=== PATIENT | male | born 1985 | race Two or more races ===

== ENCOUNTER 2021-03-02 13:36 | Inpatient (IN) | payer OTHER ==
[2021-03-02 15:51] VITALS: BMI 39.1
[2021-03-02] MEDS ORDERED: IBUPROFEN 400 MG TABLET (FP) PO PRN (17:46)
[2021-03-02] MEDS ORDERED: MAGNESIUM CITRATE 300 ML BOTTLE PO PRN (17:46)
[2021-03-02] MEDS ORDERED: P-EPHED 60MG/TRIPROLIDI 2.5MG TABLET PO PRN (17:46)
[2021-03-02] MEDS ORDERED: LOPERAMIDE HCL 2 MG CAPSULE PO PRN (17:46)
[2021-03-02] MEDS ORDERED: MAGNESIUM HYDROX 2400MG/30ML ORAL SUSPENSION 30 ML CUP PO PRN (17:46)
[2021-03-02] MEDS ORDERED: ACETAMINOPHEN 325 MG TABLET (FP) PO PRN (17:46)
[2021-03-02] MEDS ORDERED: MAG HYDROX/AL HYDROX/SIMETH 30 ML UNIT-DOSE CUP PO PRN (17:46)
[2021-03-02] MEDS ORDERED: NICOTINE POLACRILEX 2 MG GUM BC PRN (17:46)
[2021-03-02] MEDS ORDERED: guaiFENesin 200 MG/10 ML 10 ML UNIT-DOSE CUPS PO PRN (17:46)
[2021-03-02] MEDS ORDERED: TUBERCULIN PPD 5 TU/0.1ML VIAL ID ONE (23:03)
[2021-03-02] MEDS: hydrOXYzine PAMOATE 25 MG CAPSULE (FP) PO SCH ×2 (23:07→23:08)
[2021-03-02] MEDS: NICOTINE 7 MG/24 HOURS TOPICAL PATCH TD SCH (23:07)
[2021-03-02] MEDS: MELATONIN 5 MG TABLETS PO SCH (23:08)
[2021-03-02] MEDS: THIAMINE HCL 100 MG TABLET (FP) PO SCH (23:08)
[2021-03-03] MEDS: hydrOXYzine PAMOATE 25 MG CAPSULE (FP) PO SCH ×5 (06:34→21:48)
[2021-03-03] MEDS ORDERED: METOPROLOL TARTRATE 25 MG TABLET (FP) PO ONE (07:45)
[2021-03-03] MEDS ORDERED: METOPROLOL TARTRATE 25 MG TABLET (FP) PO SCH (10:00)
[2021-03-03] MEDS: NICOTINE 7 MG/24 HOURS TOPICAL PATCH TD SCH (10:30)
[2021-03-03] MEDS: PRENATAL VITAMINS W/ FOLIC ACID TABLET (FP) PO SCH (10:30)
[2021-03-03 10:48] LABS: HEMATOCRIT 48.4 % (35.4-49); HEMOGLOBIN 15.7 GM/dL (11.7-16.9); MCHC 32.5 g/dl (32.0-35.9); MEAN CELL VOLUME 89.3 fl (80-96); PLATELET COUNT 193 10^3/uL (134-434); RBC 5.42 M/mm3 (4.00-5.60); RDW 13.9 % (11.9-15.9); WHITE BLOOD COUNT 7.6 K/mm3 (4.0-10.0)
[2021-03-03 11:08] LABS: URINE APPEARANCE CLEAR; URINE BILIRUBIN NEGATIVE (NEGATIVE); URINE COLOR YELLOW; URINE GLUCOSE (UA) NEGATIVE (NEGATIVE); URINE KETONE NEGATIVE (NEGATIVE); URINE LEUK ESTERASE NEGATIVE (NEGATIVE); URINE NITRITE NEGATIVE (NEGATIVE); URINE PROTEIN NEGATIVE (NEGATIVE); URINE UROBILINOGEN 0.2 mg/dL (0.2-1.0)
[2021-03-03 11:23] LABS: ALBUMIN 3.9 g/dl (3.4-5.0); BLOOD UREA NITROGEN 9.3 mg/dL (7-18); CALCIUM 8.8 mg/dL (8.5-10.1)
[2021-03-03 11:25] LABS: CREATININE 0.8 mg/dL (0.55-1.3)
[2021-03-03 11:27] LABS: TOT PROT 7.3 g/dl (6.4-8.2)
[2021-03-03 11:29] LABS: BILIRUBIN,TOTAL 0.3 mg/dL (0.2-1)
[2021-03-03] MEDS: METOPROLOL TARTRATE 25 MG TABLET (FP) PO SCH (21:48)
[2021-03-03] MEDS: THIAMINE HCL 100 MG TABLET (FP) PO SCH (21:48)
[2021-03-03] MEDS: MELATONIN 5 MG TABLETS PO SCH (21:48)
[2021-03-04] MEDS: hydrOXYzine PAMOATE 25 MG CAPSULE (FP) PO SCH ×5 (06:14→21:19)
[2021-03-04] MEDS: METOPROLOL TARTRATE 25 MG TABLET (FP) PO SCH ×2 (10:05→21:19)
[2021-03-04] MEDS: NICOTINE 7 MG/24 HOURS TOPICAL PATCH TD SCH (10:05)
[2021-03-04] MEDS: PRENATAL VITAMINS W/ FOLIC ACID TABLET (FP) PO SCH (10:05)
[2021-03-04] MEDS: MELATONIN 5 MG TABLETS PO SCH (21:18)
[2021-03-04] MEDS: THIAMINE HCL 100 MG TABLET (FP) PO SCH (21:18)
[2021-03-05] MEDS: hydrOXYzine PAMOATE 25 MG CAPSULE (FP) PO SCH ×5 (06:14→21:59)
[2021-03-05] MEDS: PRENATAL VITAMINS W/ FOLIC ACID TABLET (FP) PO SCH (09:49)
[2021-03-05] MEDS: METOPROLOL TARTRATE 25 MG TABLET (FP) PO SCH ×2 (09:49→21:59)
[2021-03-05] MEDS: NICOTINE 7 MG/24 HOURS TOPICAL PATCH TD SCH (09:49)
[2021-03-05] MEDS: MELATONIN 5 MG TABLETS PO SCH (21:59)
[2021-03-05] MEDS: THIAMINE HCL 100 MG TABLET (FP) PO SCH (21:59)
[2021-03-06] MEDS: hydrOXYzine PAMOATE 25 MG CAPSULE (FP) PO SCH (07:06)
[2021-03-06 07:09] VITALS: BP 155/98; PULSE 71; TEMP 96.9
== END 2021-03-06 09:35 | disposition home or self-care (01) | DRG 772 ==
LOC: YASAS 13:36 → UNDOADMIN 18:10 → Y3N 18:10 → Y3W 22:06
PROVIDERS: ADMIT Allergy & Immunology; ATTEND Allergy & Immunology
PROC: HZ42ZZZ Group Counseling for Substance Abuse Treatment, Cognitive-Behavioral (ICD-10-PCS; principal; 2021-03-02)
DX: F10.20 Alcohol dependence, uncomplicated (principal); F14.20 Cocaine dependence, uncomplicated; F16.20 Hallucinogen dependence, uncomplicated; F12.20 Cannabis dependence, uncomplicated; F17.210 Nicotine dependence, cigarettes, uncomplicated; F19.24 Other psychoactive substance dependence with psychoactive substance-induced mood disorder; F41.8 Other specified anxiety disorders; F32.9 Major depressive disorder, single episode, unspecified; E78.5 Hyperlipidemia, unspecified; E11.9 Type 2 diabetes mellitus without complications; I10 Essential (primary) hypertension; J45.909 Unspecified asthma, uncomplicated; Z86.19 Personal history of other infectious and parasitic diseases
CPT/HCPCS: 36415; 80053; 81003; 85027; 86593; 86780; 93005; 93010; C9803; U0003; U0005